=== PATIENT | female | born 1990 | race Hispanic/Latino ===

== ENCOUNTER 2021-12-21 23:42 | Emergency (ER) | payer BC, SELFPAY ==
[2021-12-21 23:57] VITALS: BP 135/81; PULSE 93; RESP 18; TEMP 36.5; O2SAT 98
--- NOTE | 2021-12-22 01:09 | ED.BACK ---
HPI - Back Pain/Injury General Chief Complaint: Back Pain/Injury Stated Complaint: back pain, sciatica? Time Seen by Provider: 12/21/21 23:57 Source: RN notes reviewed History of Present Illness HPI Narrative: Patient presents emergency department from home for left-sided back pain. Patient states that symptoms began this morning when she was doing dishes and she twisted to reach for the dishes. She states that she immediately had pain in her left lower back states the pain is worse with movement and certain positions she states that she has been taking ibuprofen at home as well as IcyHot she denies any fevers or chills abdominal pain numbness or tingling in the extremities bowel or bladder incontinence or any other symptoms of concern Related Data Allergies Allergy/AdvReac Type Severity Reaction Status Date / Time No Known Allergies Allergy Verified 12/22/21 00:57 Review of Systems Review of Systems: Gen.: Denies fevers or chills ENT: Denies congestion Respiratory: Denies shortness of breath or cough CV: Denies chest pain GI: Denies abdominal pain nausea, emesis or diarrhea denies bowel incontinence Musculoskeletal: See HPI Neuro: Denies numbness, tingling, weakness or focal weakness Skin: Denies rash Except as documented, all other systems reviewed and negative COUNTS INCLUDE 234 BEDS AT THE [facility] Past Medical History Medical History (Updated 12/22/21 @ 01:11 by Shiva Flores DO) Patient denies significant medical history Social History Social History (Updated 12/22/21 @ 01:10 by Shiva Flores DO) Smoking status: Never smoker Exam Narrative: APPEARANCE: No acute distress, nontoxic, resting in bed Eyes: EOMI HEENT: Normocephalic, atraumatic, CV: Regular rate and rhythm without murmur RESPIRATORY: No respiratory distress. Clear to auscultation bilaterally. Abdomen: Soft and nontender, no rebound or guarding MUSCULOSKELETAl: Moves all extremities, no clubbing cyanosis or edema Back: No midline lumbar tenderness to palpation or step-off, tender to palpation over left paravertebral muscles L3-5 , pain increased with forward flexion NEURO: Awake and alert. Following commands, speech normal, no focal deficits, muscle strength 5 out of 5 bilateral lower extremities, bilateral patellar reflex 2+ SKIN:: Warm, dry. Normal Color no rash or lesions Course Course Emergency Course: Discussed with patient results of workup and diagnosis. Discussed need for follow-up with primary care, proper use of medication, and reasons to return to the emergency department. Patient understands and agrees to current treatment plan Vital Signs Vital signs: Vital Signs Temperature 97.7 F 12/21/21 23:57 Pulse Rate 93 12/21/21 23:57 Respiratory Rate 18 12/21/21 23:57 Blood Pressure 135/81 12/21/21 23:57 Pulse Oximetry 98 12/21/21 23:57 Oxygen Delivery Room Air 12/21/21 23:57 Temperature 97.7 F 12/21/21 23:57 Pulse Rate 93 12/21/21 23:57 Respiratory Rate 18 12/21/21 23:57 Blood Pressure 135/81 12/21/21 23:57 Pulse Oximetry 98 12/21/21 23:57 Oxygen Delivery Room Air 12/21/21 23:57 MDM - Back Pain/Injury MDM Narrative Medical decision making narrative: Patient?s pain is positional and localized to back without signs of cord compression or cauda equina. Normal nuerologic exams. No fever noted and no significant risk factors for osteomyelitis or spinal epidural abscess. No symptoms or signs to suggest pain is referred from abdominal or source. There are no pulsatile masses to exam. Patient ambulates with a steady gait and is felt to be up reasonable candidate for continued outpatient management Lab Data Labs: UCG Bedside Result Negative Reference Range: Negative Discharge Plan Discharge Clinical Impression: Acute left-sided back pain Patient Disposition: Home, Self-Care Condition: Stable Instructions: Antibiotic For
[2021-12-22] MEDS: CYCLOBENZAPRINE HCL 10 MG TABLET PO (01:19)
[2021-12-22] MEDS: ACETAMINOPHEN 500 MG TABLET 1000 MG PO (01:19)
[2021-12-22 01:45] VITALS: BP 126/70; PULSE 80; RESP 16; TEMP 36.3; O2SAT 100
== END 2021-12-22 01:46 | disposition home or self-care (01) ==
PROVIDERS: Emergency Provider Emergency Medicine
DX: M54.50 Low back pain, unspecified (principal)
CPT/HCPCS: 81025; 99283; A9270